=== PATIENT | female | born 1950 | race Caucasian/White ===

== ENCOUNTER 2024-03-02 15:07 | Emergency (ER) | payer MEDICARE, OTHER ==
[~2024-03-02] VITALS: Ht 162.6 cm; Wt 84.4 kg
[2024-03-02 15:26] VITALS: TEMP 98.4
[2024-03-02] MEDS ORDERED: ATOR40TA PO (16:02)
[2024-03-02] MEDS ORDERED: LEVE500T20 PO (16:02)
[2024-03-02] MEDS ORDERED: OLME20TA23 PO (16:02)
[2024-03-02] MEDS ORDERED: ASPI-1420 PO (16:02)
[2024-03-02] MEDS ORDERED: MAGN400T8 PO (16:02)
[2024-03-02] MEDS ORDERED: RIME75TA SL (16:02)
[2024-03-02] MEDS ORDERED: TAMS-12 PO (16:02)
[2024-03-02] MEDS ORDERED: FURO20TA4 PO (16:02)
[2024-03-02] MEDS ORDERED: SENN8.6T19 PO (16:02)
[2024-03-02] MEDS ORDERED: ACET-73 PO (16:02)
[2024-03-02] MEDS ORDERED: PANT40TA49 PO (16:02)
[2024-03-02] MEDS ORDERED: ONDANSETRON HCL/PF 4 MG/2 ML VIAL ONE (16:39)
[2024-03-02 16:48] LABS: BASOPHILS % (AUTO) 0.4 % (0.0-2.0); EOSINOPHILS % (AUTO) 0.1 % (0.0-6.0); HEMATOCRIT 36 % (33-45); HEMOGLOBIN 12.3 g/dL (11.5-14.8); LYMPHOCYTES # (AUTO) 0.3 K/uL (0.8-4.8); LYMPHOCYTES % (AUTO) 5.3 % (20.0-44.0); MEAN CORPUSCULAR HEMOGLOBIN 33 PG (26.0-33.0); MEAN CORPUSCULAR HGB CONC 34 g/dl (31.0-36.0); MEAN CORPUSCULAR VOLUME 97 fL (82-100); MONOCYTES # (AUTO) 0.3 K/uL (0.1-1.30); MONOCYTES % (AUTO) 6.1 % (2.0-12.0); NEUTROPHILS # (AUTO) 4.8 K/uL (1.8-8.9); NEUTROPHILS % (AUTO) 88.1 % (43.0-81.0); PLATELET COUNT (AUTO) 203 K/uL (150-450); RED BLOOD CELL COUNT(AUTO) 3.75 MIL/uL (4.0-5.2); RED CELL DISTRIBUTION WIDTH 12.5 % (11.5-15.0); WHITE BLOOD COUNT (AUTO) 5.4 K/uL (4.3-11.0)
[2024-03-02] MEDS: ONDANSETRON HCL/PF 4 MG/2 ML VIAL IVP ONE (16:48)
[2024-03-02 17:24] LABS: APPEARANCE,URINE SLIGHTLY CLOUDY (CLEAR); BILIRUBIN,URINE NEGATIVE (NEGATIVE); BLOOD, URINE 2+ Ery/uL (NEGATIVE); KETONES,URINE NEGATIVE (NEGATIVE); LEUKOCYTE ESTERASE ,URINE NEGATIVE (NEGATIVE); NITRITE, URINE NEGATIVE (NEGATIVE); PROTEIN,URINE NEGATIVE (NEGATIVE); UGLUCOSE NEGATIVE (NEGATIVE); UROBILINOGEN,URINE 0.2 EU/dL (0.2)
[2024-03-02 17:28] LABS: COLOR,URINE STRAW (YELLOW)
[2024-03-02 17:39] LABS: ADD URINE CULTURE YES; BACTERIA,URINE Moderate /HPF (None Seen); SQUAMOUS EPITHELIAL CELL,UR Few /HPF (None Seen); WBC,URINE 0-2 /HPF (0-3)
[2024-03-02] MEDS ORDERED: IOHEXOL-300 100 ML VIAL IV ONE (17:43)
[2024-03-02] MEDS ORDERED: IV NS 0.9% 250 ML IV ONE (17:43)
[2024-03-02 18:05] LABS: CALCIUM, SERUM 8.4 mg/dL (8.5-10.1); CARBON DIOXIDE 29 mmol/L (21-32); CHLORIDE 107 mmol/L (98-107); CREATININE 1.3 mg/dL (0.6-1.3); GLUCOSE 104 mg/dL (74-106); SODIUM SERUM 142 mmol/L (136-145); UREA NITROGEN, BLOOD 31 mg/dL (7-18)
[2024-03-02 18:08] LABS: ALANINE AMINOTRANSFERASE 15 U/L (12-78); ALBUMIN 3.5 g/dL (3.4-5.0); ALKALINE PHOSPHATASE 205 U/L (46-116); ASPARTATE AMINOTRANSFERASE 19 U/L (15-37); BILIRUBIN,DIRECT 0.2 mg/dL (0.0-0.2); LIPASE 27 U/L (16-77)
[2024-03-02] MEDS: IV NS 0.9% 1,000 ML BAG IV ONE (19:25)
[2024-03-02 20:00] VITALS: BP 99/56; O2SAT 95
[2024-03-02] MEDS ORDERED: ONDA4TAB11 PO (21:48)
[2024-03-02] MEDS ORDERED: ACET-2605 PO (21:48)
== END 2024-03-02 23:23 ==
LOC: ER 15:10
DX: R10.9 Unspecified abdominal pain (principal); R11.2 Nausea with vomiting, unspecified; I11.0 Hypertensive heart disease with heart failure; I50.9 Heart failure, unspecified; Z79.82 Long term (current) use of aspirin; Z79.899 Other long term (current) drug therapy; Z86.73 Personal history of transient ischemic attack (TIA), and cerebral infarction without residual deficits; Z87.442 Personal history of urinary calculi; Z90.49 Acquired absence of other specified parts of digestive tract; Z88.5 Allergy status to narcotic agent
CPT/HCPCS: 99285; 74177; 96374; 71045; 96361; 93005; 85025; 80048; 87086; 83605; 83690; 80076; 81001; 36415; 84484; J2405; J7030; J7050; Q9967